=== PATIENT | female | born 1975 | race Caucasian/White ===

== ENCOUNTER 2022-11-11 16:27 | Emergency (ER) | payer MEDICAID ==
[~2022-11-11] VITALS: Ht 157.5 cm; Wt 86.3 kg
[2022-11-11 17:00] LABS: BASOPHILS % (AUTO) 0.7 % (0-1); EOSINOPHILS % (AUTO) 0.5 % (0-6); HEMATOCRIT 27.5 % (35.0-45.0); HEMOGLOBIN 9.6 g/dl (12.0-16.0); LYMPHOCYTES # (AUTO) 1.8 X10'3 (1.1-4.8); LYMPHOCYTES % (AUTO) 27.3 % (21-51); MEAN CORPUSCULAR HEMOGLOBIN 40.2 PG (27.0-31.0); MEAN CORPUSCULAR HGB CONC 34.8 g/dL (33.0-36.5); MEAN CORPUSCULAR VOLUME 115.6 FL (78-98); MEAN PLATELET VOLUME 9.2 FL (7.4-10.4); MONOCYTES # (AUTO) 0.4 X10'3 (0-0.9); MONOCYTES % (AUTO) 6.1 % (2-12); NEUTROPHILS # (AUTO) 4.2 X10'3 (1.8-7.7); NEUTROPHILS % (AUTO) 65.4 % (42-75); PLATELET COUNT 154 X10'3 (140-440); RED BLOOD COUNT 2.38 X10'6 (4.20-5.60); WHITE BLOOD COUNT 6.4 X10'3 (4.5-11.0)
[2022-11-11 17:04] LABS: ANION GAP 11 (8-16); CHLORIDE 102 MMOL/L (99-107); GLUCOSE 108 MG/DL (70-104); SODIUM 141 MMOL/L (135-145); TOTAL CARBON DIOXIDE 28.5 MMOL/L (24-32)
[2022-11-11 17:05] LABS: ALANINE AMINOTRANSFERASE 50 U/L (12-78); ALBUMIN 4.2 G/DL (3.4-5.0); ALBUMIN/GLOBULIN RATIO 1.4 (1.1-1.5); ALKALINE PHOSPHATASE 84 IU/L (46-116); ASPARTATE AMINO TRANSFERASE 30 U/L (10-37); BILIRUBIN,TOTAL 2.9 MG/DL (0.1-1.0); BLOOD UREA NITROGEN 11 MG/DL (7-18); BUN/CREATININE RATIO 15.5 (10.0-20.0); CALCIUM 9.4 MG/DL (8.5-10.1); CREATININE 0.71 MG/DL (0.40-0.90); TOTAL PROTEIN 7.1 G/DL (6.4-8.2); eGFR 89 ML/MIN
[2022-11-11 17:19] LABS: TOTAL CELLS COUNTED 100
[2022-11-11 17:21] LABS: PLATELET ESTIMATE NORMAL; TEAR DROP CELLS FEW
[2022-11-11] MEDS ORDERED: albuterol 2.5 MG/3 ML nebule CONTNEB PRN (18:05)
[2022-11-11] MEDS ORDERED: methylPREDNISolone sod succ 125mg/2ml vial IM ONE (18:05)
[2022-11-11] MEDS ORDERED: ipratropium/albuterol 3ml nebule NEB ONE (18:05)
[2022-11-11] MEDS ORDERED: DOXYCYCLINE 100MG CAPSULE PO STA (19:48)
[2022-11-11] MEDS ORDERED: IRON1CAP6 PO (19:55)
[2022-11-11] MEDS ORDERED: ALBU6.7H14 INH (19:55)
[2022-11-11] MEDS ORDERED: DOXY-135 PO (19:55)
[2022-11-11] MEDS ORDERED: PRED20TA PO (19:55)
[2022-11-11] MEDS ORDERED: BUDE10.2 INH (19:55)
[2022-11-11] MEDS ORDERED: ALB0.5UD NEB (19:55)
--- NOTE | 2022-11-11 21:04 | NUR ---
PT SPO2 DESAT TO 82% WITH AMBULATION. PT REQUIRES 4L NC TO MAINTAIN SATS OF 94%
--- NOTE | 2022-11-11 22:03 | NUR ---
PT TO BE DC WITH OXYGEN, AWAITING ARRIVAL OF EQUIPMENT
[2022-11-11 23:01] VITALS: BP 136/65
--- NOTE | 2022-11-11 23:09 | NUR ---
ALIZA AT BEDSIDE WITH OXYGEN EQUIPMENT FOR PT
== END 2022-11-11 23:30 | disposition home or self-care (01) ==
LOC: ER 16:28
DX: J45.901 Unspecified asthma with (acute) exacerbation (principal); Z79.2 Long term (current) use of antibiotics; Z79.899 Other long term (current) drug therapy
CPT/HCPCS: 36415; 71045; 80053; 83880; 84484; 85007; 85025; 93005; 94640; 94644; 96372; 99285; J2930; A7015